=== PATIENT | male | born 1965 | race Caucasian/White ===

== ENCOUNTER 2016-10-30 12:22 | Inpatient (IN) | payer OTHER ==
--- NOTE | ~2016-10-30 | EKG ---
PATIENT: SANGITA KENNY UNIT #: [id number] Ventricular Rate: 72 BPM Atrial Rate: 72 BPM P-R Interval: 208 ms QRS Duration: 88 ms Q-T Interval: 340 ms QTC Calculation(Bezet): 372 ms P [place]: 43 degrees Calculated R [place]: 13 degrees Calculated T [place]: 34 degrees Diagnosis Line: Normal sinus rhythm Diagnosis Line: Serial changes of evolving Inferior infarct Diagnosis Line: Abnormal ECG Diagnosis Line: When compared with ECG of 30-OCT-2016 08:46, Diagnosis Line: (unconfirmed) Diagnosis Line: Serial changes of evolving Inferior infarct Diagnosis Line: Present Diagnosis Line: Nonspecific T wave abnormality now evident in Diagnosis Line: Anterior leads Diagnosis Line: Confirmed by SRAVANI LYMAN MD ([id number]) on 10/31/2016 Diagnosis Line: 7:18:42 PM INTERPRETING MD: NURA VU
--- NOTE | ~2016-10-30 | CR72 ---
[facility] A Service of [facility] & [facility] RADIOLOGY TEXT RESULTS PATIENT: SANGITA KENNY LOCATION: [place] [address] : 61 UNIT #: [id number] AGE: [address]: Dayna Riley MD SEX: M ORDER DR: [id number] [facility] [address] [facility]. [place], [place] [address] [id number] MR#: [id number] Acc #: [id number] NAME: SANGITA KENNY : 1965 SEX: M STUDY DATE/TIME: 10/30/2016 8:09 UNIT: [facility] ROOM: STUDY DESCRIPTION: CR Chest Single View Portable Attending Physician: Tank Gunter M.D. Ordering Physician: Tank Gunter M.D. Primary Care Physician: Dayna Riley M.D. MEDICAL IMAGING REPORT This report is preliminary unless electronic signature is present EXAM Portable chest, 10/30/2016. COMPARISON STUDIES 10/26/2016 CLINICAL HISTORY Chest pain and short of air following cardiac cath today. FINDINGS There is cardiomegaly and vascular congestion when compared to the prior study. Question acute congestive failure. No pneumothorax, consolidation, or effusion. Dictated by... Ayo Ho M.D. THIS IS AN ELECTRONICALLY VERIFIED REPORT Ayo Ho M.D. at 10/30/2016 3:51 PM TEV/timow TD: 10/30/2016 09:54 JOB #: [id number] MEDICAL IMAGING REPORT Page 1 of 1 COPY
--- NOTE | ~2016-10-30 | EKG ---
PATIENT: SANGITA KENNY UNIT #: [id number] Ventricular Rate: 70 BPM Atrial Rate: 70 BPM P-R Interval: 282 ms QRS Duration: 102 ms Q-T Interval: 360 ms QTC Calculation(Bezet): 388 ms P [place]: 45 degrees Calculated R [place]: 59 degrees Calculated T [place]: 106 degrees Diagnosis Line: Sinus rhythm with 1st degree A-V block Diagnosis Line: Inferior injury pattern Diagnosis Line: ACUTE [place] / STEMI Diagnosis Line: Consider right ventricular involvement in acute Diagnosis Line: inferior infarct Diagnosis Line: Possible Posterior infarct Diagnosis Line: Abnormal ECG Diagnosis Line: No previous ECGs available Diagnosis Line: Confirmed by NURA VU, SRAVANI ([id number]) on 10/31/2016 Diagnosis Line: 7:08:44 PM INTERPRETING MD: NURA VU
--- NOTE | ~2016-10-30 | DS ---
Unit #: [id number] #: [id number] Patient: SANGITA KENNY [id number] [address] [place], [place] [address] [id number] I MR#: [id number] NAME: SANGITA KENNY. ROOM: 55 Age: 51 Sex: M Admission Date: 10/30/2016 : 1965 Discharge Date: 11/01/2016 Attending Physician: Dayna Riley M.D. Primary Care Physician: Fahad Lao M.D. DISCHARGE SUMMARY DISCHARGE DIAGNOSES 1. Acute inferior wall ST elevation myocardial infarction. 2. Status post urgent cardiac catheterization per Dr. Shanks, 10/30/2016 that reveals the following results: A. Left main normal. B. Left anterior descending artery normal. C. Circumflex artery normal. D. Right coronary artery with 100% stenosis midsegment with GABE 0 flow. E. Ejection fraction of 50%. 3. Status post angioplasty with drug-eluting stent to the mid right coronary artery. 4. Accelerated hypertension. 5. History of narcolepsy. 6. Nonsmoker. DISCHARGE MEDICATIONS 1. Armodafinil 150 mg daily. 2. Lopressor 25 mg b.i.d. 3. Lipitor 80 mg q.h.s. 4. Lisinopril 20 mg daily. 5. Aspirin 81 mg daily. 6. Mobic 15 mg daily. 7. Amoxicillin 875 mg b.i.d. 8. Plavix 75 mg daily. 9. Vitamin D 50,000 units weekly. HOSPITAL COURSE This is a 51-year-old male who began to have midsternal chest discomfort a week ago that lasted for 20-30 minutes. On the day of admission, his chest pain worsened it felt as if an elephant was sitting on his chest. He had associated radiation to his arm with numbness. In the emergency room, he was found to have ST elevation in the inferior leads with reciprocal changes in the lateral leads. He was taken emergent to the cardiac catheterization lab. Prior to the dental laboratory technician apprentice, he was given heparin bolus, aspirin, and nitrates. Phenergan was given for nausea. In the dental laboratory technician apprentice, he was found to have single vessel disease with 100% stenosis to the mid right coronary artery. There was successful deployment of a 4.0 x 20 mm long Synergy drug-eluting stent into the mid right coronary artery. The vessel was postdilated up to 4.7 mm. Initial GABE flow of 0 was converted to GABE flow of 3. The patient was bolused with Brilinta in the emergency room. He was on high intensity statin with Lipitor. His cholesterol levels were normal, but triglycerides were elevated to 168. His troponin peaked at 16.8. MB index peaked at 19. Beta-roselyn and ORA Unit #: [id number] #: [id number] Patient: SANGITA KENNY C inhibitor was initiated. He did well on the previous study without reoccurrence of chest pain. He was allowed to ambulate without any symptoms. Today, the patient is doing well. His electrocardiogram shows development of a small Q wave in leads III and aVF with T wave inversion. His right radial site is healing well without hematoma or bruising. Heart rate and blood pressure are stable. He is stable for discharge today. ASSESSMENT VITAL SIGNS: Blood pressure 101/59, heart rate 81, and temperature 98.2. CHEST: Clear to auscultation. HEART: S1 and S2 with regular rate and rhythm. ABDOMEN: Soft. Good bowel sounds are present. Nontender. EXTREMITIES: Without leg edema. Right radial without hematoma or bruising. Normal sensation in the extremity. CONSULTATIONS [facility] for medical management. DIAGNOSTIC STUDIES LABORATORY: Glucose 98, BUN 16, creatinine 1, sodium 134, and potassium 4.2. Cholesterol 158, triglycerides 168, LDL 79, and HDL 45. White count 9.9, hemoglobin 13.9, hematocrit 42.6, and platelet count 204. CARDIOVASCULAR: Electrocardiogram: Normal sinus rhythm with a rate of 73 beats per minute with small Q waves in leads III and aVF. There is T wave inversion in those leads as well. DISCHARGE INSTRUCTIONS 1. The patient will be discharged home today. 2. Follow up with Dr. Shanks in six weeks. 3. The patient will continue on dual antiplatelet therapy with aspirin and Plavix for at least one year. 4. Continue high intensity statin, ORA inhibitor, and beta-roselyn. 5. Patient may return to work in two weeks without restrictions. Dictated by... Hector Doe A.P.R.N. for Chris Ramirez TD: 11/03/2016 13:42 JOB #: [id number] DISCHARGE SUMMARY Page 1 of 1 X Hector Doe APRN DISCHARGE SUMMARY
--- NOTE | ~2016-10-30 | EKG ---
PATIENT: SANGITA KENNY UNIT #: [id number] Ventricular Rate: 73 BPM Atrial Rate: 73 BPM P-R Interval: 200 ms QRS Duration: 92 ms Q-T Interval: 360 ms QTC Calculation(Bezet): 396 ms P [place]: 42 degrees Calculated R [place]: 28 degrees Calculated T [place]: -7 degrees Diagnosis Line: Normal sinus rhythm Diagnosis Line: ST elevation consider inferior injury or acute Diagnosis Line: infarct Diagnosis Line: * ACUTE [place] Diagnosis Line: Consider right ventricular involvement in acute Diagnosis Line: inferior infarct Diagnosis Line: Abnormal ECG Diagnosis Line: When compared with ECG of 30-OCT-2016 07:02, Diagnosis Line: (unconfirmed) Diagnosis Line: Serial changes of evolving inferoposterior [place] Diagnosis Line: ID interval has decreased Diagnosis Line: ST less elevated in Inferior leads Diagnosis Line: T wave inversion now evident in Inferior leads Diagnosis Line: T wave inversion no longer evident in Lateral Diagnosis Line: leads Diagnosis Line: Confirmed by SRAVANI LYMAN MD ([id number]) on 10/31/2016 Diagnosis Line: 7:10:08 PM INTERPRETING MD: NURA VU
--- NOTE | ~2016-10-30 | HP ---
Unit #: [id number] #: [id number] Patient: SANGITA KENNY [id number] [address] [place], [place] [address] [id number] I MR#: [id number] NAME: SANGITA KENNY. ROOM: [facility] Age: 51 Sex: M Admission Date: 10/30/2016 : 1965 Attending Physician: Dayna Riley M.D. Primary Care Physician: Fahad Lao M.D. HISTORY AND PHYSICAL CHIEF COMPLAINT Chest pain. HISTORY Mr. Kenny is a 51-year-old white male who works at the [employer] and owns a music store in [facility]. Had considered himself in good health most of his adult life. About a week ago he had some midsternal chest discomfort, which resolved spontaneously in about 20 to 30 minutes, and he did not seek medical attention. This morning about an hour prior to presentation in the emergency room, he started complaining of severe midsternal chest discomfort as if "an elephant was sitting on his chest" associated with marked nervousness, anxiety, pain radiating down his arms associated with numbness, tingling in both hands and feet. He came to the emergency room where he was noted to have an ST elevation [place] involving the inferior wall, and I was asked to see him. He has never been told to have any heart disease in the past. He denies any history of hypertension, diabetes mellitus, hyperlipidemia, previous [place] or stroke. He is a lifetime nonsmoker and does not abuse alcohol. FAMILY HISTORY Family history is positive for coronary artery disease; his father had coronary artery disease at a relatively young age, and his uncles also had MIs at a young age. No siblings have heart disease. SOCIAL AND PERSONAL HISTORY He is a nonsmoker. PAST SURGICAL HISTORY Noncontributory. PHYSICAL EXAMINATION GENERAL: Physical examination reveals a middle-aged male in excruciating discomfort. Was very nervous and anxious. VITAL SIGNS: Had a blood pressure of 180/110 mmHg. VASCULAR: Both carotids had a normal upstroke without any bruits. There was no ankle edema. Pedal pulses were normal. CARDIAC: Exam showed apical impulse to be normal. Both heart sounds were normal. No rubs or clicks were audible. There was no murmur. CHEST: Examination showed good air entry bilaterally without any rales or rhonchi. ABDOMEN: Examination showed no hepatosplenomegaly, free fluid or masses. RECTAL: Examination was deferred. SLASHER SAWYER: Examination was within normal limits. Unit #: [id number] #: [id number] Patient: SANGITA KENNY DIAGNOSTIC STUDIES CARDIOVASCULAR: EKG shows normal sinus rhythm, ST segment elevation in inferior leads. The rest of the lab investigations are awaited. IMPRESSION 1. Acute inferior wall WY with ST segment elevation 2. Accelerated hypertension probably of recent onset. PLAN The patient was given intravenous heparin 5,000 units, sublingual nitroglycerin, 325 mg aspirin, 4 mg morphine sulfate and 12.5 mg of intravenous Phenergan. He was advised to consider an emergent cardiac catheterization with possible angioplasty if needed, to which he agreed. The patient will be taken to the cardiac catheterization lab for emergent cardiac cath and possible angioplasty. Dictated by Chris Ramirez/nuzhat TD: 10/30/2016 09:38 JOB #: [id number] HISTORY AND PHYSICAL Page 1 of 1 X Preston Shanks MD X HISTORY AND PHYSICAL
[2016-10-30 07:24] LABS: BASOPHIL# 0.1 X10e3 (0-0.3); BASOPHIL% 0.7 % (0-2.5); DIFF IND YES; EOSINOPHIL# 0.1 X10e3 (0-0.7); EOSINOPHIL% 0.5 % (0.0-7.0); HEMATOCRIT 46.5 % (38.0-50.0); LYMPHOCYTE# 3.4 X10e3 (1.0-3.5); LYMPHOCYTE% 21.1 % (17.0-45.0); MEAN CELL VOLUME 91.1 FL (83-96); MEAN CORPUSCULAR HEMOGLOBIN 29.4 PG (28-34); MEAN CORPUSCULAR HGB CONC 32.3 g/dL (30-36); MEAN PLATELET VOLUME 7.6 FL (6.5-11.5); MONOCYTE# 1.5 X10e3 (0-1.0); MONOCYTE% 9.2 % (3.0-12.0); NEUTROPHIL% 68.5 % (40-75); PLATELET COUNT 243 X10e3 (140-420); RED BLOOD COUNT 5.11 X10e (3.90-5.60); WHITE BLOOD COUNT 16.1 X10e3 (4.0-10.5)
[2016-10-30 07:32] LABS: POC - CKMB 9.4 ng/mL (0.0-7.9); POC - TROPONIN 1.56 ng/mL (<=0.05)
[2016-10-30 07:41] LABS: PARTIAL THROMBOPLASTIN TIME 23.3 SECONDS (23.5-31.3); PROTHROMBIN TIME (PATIENT) 10.1 SECONDS (9.6-11.5)
[2016-10-30 07:44] LABS: ALBUMIN SERUM 3.7 g/dL (3.5-5.0); ALKALINE PHOSPHATASE 103 U/L (32-92); ALT (SGPT) 46 U/L (10-40); AST (SGOT) 33 U/L (10-42); BILIRUBIN,TOTAL 0.6 mg/dL (0.2-2.0); BLOOD UREA NITROGEN 27 mg/dL (9-23); BUN/CREATININE RATIO 20.76; CALCIUM SERUM 8.8 mg/dL (8.4-10.2); CARBON DIOXIDE 25 mmol/L (22-31); CHLORIDE 101 mmol/L (100-111); CREATININE SERUM 1.3 mg/dL (0.6-1.4); GLOM FILT RATE Estimated 62.3 mL/min (>60); GLUCOSE FASTING 139 mg/dL (70-110); POTASSIUM 3.9 mmol/L (3.5-5.1); PROTEIN TOTAL SERUM 7.7 g/dL (6.0-8.3); SODIUM 135 mmol/L (135-145)
[2016-10-30 07:45] LABS: BILIRUBIN, DIRECT <0.1 mg/dL (0.0-0.2); BILIRUBIN,INDIRECT 0.5 mg/dL (0.0-0.9)
[2016-10-30 07:46] LABS: ANISOCYTOSIS SL; PLATELET ESTIMATE NORMAL (NORMAL); RBC NORMAL YES
[~2016-10-30 12:22] MED LIST: AMOXICILLIN875 MG PO; ARMODAFINIL150 MG PO; FELDENE20 MG PO; FLOMAX0.4 M1 PO; MOBIC15 MG PO; NUVIGIL250 MG PO; PERCOCET 51 UDTAB 5/ PO; PHENERGAN25 MG PO; VITAMIN D250000 UNIT PO
[2016-10-30 17:05] LABS: ANGIO MB 206.3 ng/ml
[2016-10-31 06:13] LABS: BASOPHIL% 0.4 % (0-2.5); EOSINOPHIL# 0.1 X10e3 (0-0.7); EOSINOPHIL% 0.6 % (0.0-7.0); HEMATOCRIT 42.6 % (38.0-50.0); HEMOGLOBIN 13.9 gm/dL (13.0-16.0); LYMPHOCYTE# 2.3 X10e3 (1.0-3.5); LYMPHOCYTE% 22.9 % (17.0-45.0); MEAN CELL VOLUME 90.7 FL (83-96); MEAN CORPUSCULAR HEMOGLOBIN 29.6 PG (28-34); MEAN CORPUSCULAR HGB CONC 32.6 g/dL (30-36); MEAN PLATELET VOLUME 7.6 FL (6.5-11.5); MONOCYTE% 9.8 % (3.0-12.0); NEUTROPHIL# 6.6 X10e3 (1.5-7.1); NEUTROPHIL% 66.3 % (40-75); PLATELET COUNT 204 X10e3 (140-420); RED BLOOD COUNT 4.69 X10e (3.90-5.60); RED CELL DISTRIBUTION WIDTH 13.7 % (11.0-15.5); WHITE BLOOD COUNT 9.9 X10e3 (4.0-10.5)
[2016-10-31 06:30] LABS: DIFF IND NO
[2016-10-31 06:50] LABS: ANGIO %MB 14.6 % (0.0-4.0); ANGIO MB 81.9 ng/ml
[2016-10-31 07:09] LABS: CALCIUM SERUM 8.4 mg/dL (8.4-10.2); GLOM FILT RATE Estimated 85.6 mL/min (>60); POTASSIUM 4.2 mmol/L (3.5-5.1)
[2016-11-01] MEDS ORDERED: CLOPIDOGREL75 MG PO (11:54)
[2016-11-01] MEDS ORDERED: METOPROLOL TAR25 MG PO (11:55)
[2016-11-01] MEDS ORDERED: LIPITOR80 MG PO (11:55)
[2016-11-01] MEDS ORDERED: LISINOPRIL20 MG PO (11:56)
[2016-11-01] MEDS ORDERED: ASPIRIN81 MG PO (11:56)
== END 2016-11-01 14:33 | disposition home or self-care (01) | DRG 247 ==
LOC: CED 12:22 → C5B 12:23
PROVIDERS: Emergency Medicine
PROC: 4A023N7 Measurement of Cardiac Sampling and Pressure, Left Heart, Percutaneous Approach (ICD-10-PCS; principal; 2016-10-30)
PROC: 027034Z Dilation of Coronary Artery, One Artery with Drug-eluting Intraluminal Device, Percutaneous Approach (ICD-10-PCS; 2016-10-30)
PROC: B211YZZ Fluoroscopy of Multiple Coronary Arteries using Other Contrast (ICD-10-PCS; 2016-10-30)
PROC: B215YZZ Fluoroscopy of Left Heart using Other Contrast (ICD-10-PCS; 2016-10-30)
DX: I21.19 ST elevation (STEMI) myocardial infarction involving other coronary artery of inferior wall (principal); I10 Essential (primary) hypertension; G47.419 Narcolepsy without cataplexy; Z82.49 Family history of ischemic heart disease and other diseases of the circulatory system
CPT/HCPCS: 71010; 80048; 80061; 80076; 82550; 82553; 83735; 84484; 85025; 85347; 85610; 85730; 93005; 99291; C1725; C1769; C1874; C1887; C1894; J0461; J1644; J2250; J2270; J2550; J3010